=== PATIENT | female | born 1935 | race Caucasian/White ===

== ENCOUNTER → 2017-09-20 | Outpatient (CLI) | payer OTHER ==
[~2017-09-20] MED LIST: ALPR-411 PO; ASPEC81 PO; ATOR-24 PO; CALC600T9 PO; CLB200 PO; DOCU-94 PO; HYDR-5688 PO; LISI-461 PO; MAGN400T5 PO; METO100T44 PO; NRV5 PO; POTA-327 PO; PRLSR20 PO
[2017-09-20 17:49] LABS: BASO % 0.4 %; BASO ABS # 0.03 K/uL (0-0.2); EOS % 2.6 %; HEMATOCRIT 41.1 % (37-47); IG# 0.01 K/uL (0.00-0.02); LYMPH % 38.5 %; LYMPH ABS # 2.97 K/uL (1.2-3.4); MEAN CELL VOLUME 94.9 fL (80-100); MEAN CORPUSCULAR HEMOGLOBIN 32.3 pg (25-34); MEAN CORPUSCULAR HGB CONC 34.1 g/dl (32-36); MEAN PLATELET VOLUME 9.6 fL (7.4-10.4); MONO % 8.9 %; MONO ABS # 0.69 K/uL (0.11-0.59); NEUT % 49.5 %; NEUT ABS # 3.81 K/uL (1.4-6.5); PLATELET COUNT 283 K/uL (130-400); RED CELL DISTRIBUTION WIDTH CV 13.1 % (11.5-14.5); RED CELL DISTRIBUTION WIDTH SD 45.6 fL (36.4-46.3); WHITE BLOOD COUNT 7.71 K/uL (4.8-10.8)
[2017-09-20 18:14] LABS: ALBUMIN 4.1 gm/dl (3.4-5.0); ALT/SGPT 30 U/L (12-78); AST/SGOT 26 U/L (15-37); BLOOD UREA NITROGEN 14 mg/dl (7-18); CARBON DIOXIDE 29 mmol/L (21-32); CREATININE 0.96 mg/dl (0.60-1.20); GLUCOSE 100 mg/dl (70-99); POTASSIUM 3.9 mmol/L (3.5-5.1); SODIUM 137 mmol/L (136-145)
[2017-09-20 18:17] LABS: ALKALINE PHOSPHATASE 115 U/L (45-117); CHOLESTEROL 154 mg/dl (0-200); LDL CHOLESTEROL CALCULATED 72 mg/dl; TOTAL PROTEIN 8.5 gm/dl (6.4-8.2)
== END | disposition home or self-care (01) ==
LOC: C.LABMFLN 11:37
PROVIDERS: ATTEND Family Medicine
DX: I10 Essential (primary) hypertension (principal); E78.5 Hyperlipidemia, unspecified

== ENCOUNTER → 2017-10-18 | Outpatient (CLI) | payer OTHER | END | disposition home or self-care (01) | LOC: C.LABMFLN 07:45 | PROVIDERS: ATTEND Family Medicine | DX: R74.8 Abnormal levels of other serum enzymes (principal) ==

== ENCOUNTER 2023-02-11 14:48 | Observation (INO) ==
[2023-02-11 16:08] LABS: Basophils # (auto) 0.02 K/uL (0-0.2); Basophils % (auto) 0.3 %; Eosinophils # (auto) 0.06 K/uL (0-0.50); Eosinophils % (auto) 0.8 %; Hematocrit (blood only) 41.9 % (37.0-47.0); Hemoglobin 14.2 g/dl (12.0-16.0); Immature Granulocytes # (auto) 0.01 K/uL (0.01-0.20); Immature Granulocytes % (auto) 0.1 %; Lymphocytes # (auto) 2.41 K/uL (1.2-3.4); Lymphocytes % (auto) 33.4 %; Mean Corpuscular Hemoglobin 30.8 pg (25.0-34.0); Mean Corpuscular Hgb Conc 33.9 g/dL (32.0-36.0); Mean Corpuscular Volume 90.9 fL (80.0-100.0); Mean Platelet Volume 9.5 fL (9.4-12.4); Monocytes # (auto) 0.35 K/uL (0.11-0.59); Monocytes % (auto) 4.9 %; Neutrophils # (auto) 4.36 K/uL (1.40-6.50); Neutrophils % (auto) 60.5 %; Platelet Count 292 K/uL (130-400); RDW Standard Deviation 42.7 fL (36.4-46.3); Red Blood Count 4.61 M/uL (4.20-5.40); White Blood Count 7.21 K/ul (4.8-10.8)
[2023-02-11 16:18] LABS: Alanine Aminotransferase 18 U/L (7-52); Albumin Globulin Ratio 1.2 (0.9-2); Albumin Level 4.5 gm/dl (3.4-5.0); Alkaline Phosphatase 113 U/L (34-104); Anion Gap 6 (3-11); Aspartate Aminotransferase 22 U/L (13-39); BUN Creatinine Ratio 14.3 (10-20); Bilirubin,Total 1.4 mg/dl (0.2-1.0); Blood Urea Nitrogen 11 mg/dl (6-23); Carbon Dioxide 30 mmol/L (21-32); Chloride 97 mmol/L (98-107); Est GFR (African American) 80.5 ml/min; Est GFR (Non-African American) 69.4 ml/min; Globulin 3.8 gm/dl (2.5-4.0); Glucose 139 mg/dl (70-99(Fasting)); Potassium 3.8 mmol/L (3.5-5.1); Sodium 133 mmol/L (136-145); Total Protein 8.3 gm/dl (6.0-8.3)
--- NOTE | 2023-02-11 16:58 | CT Scan Report ---
CT head/brain wo con CLINICAL HISTORY: 87 years-old Female with vertigo. Acute vertigo TECHNIQUE: Multiple axial CT images of the head were obtained without contrast. A dose lowering tech nique was utilized adhering to the principles of ALARA. CT DOSE: 547.75 mGy.cm COMPARISON: None. FINDINGS: No acute intracranial hemorrhage, midline shift, intracranial mass, hydrocephalus, territorial ischem ia or abnormal extra-axial collection. No additional changes with chronic microvascular ischemic dise ase. Prior bilateral lens repair. The calvarium is intact. The paranasal sinuses, mastoid air cells, and middle ear cavities are clear . IMPRESSION: No acute intracranial abnormality. ACT 112: Negative or not required by law. The above report was generated using voice recognition software. It may contain grammatical, syntax o r spelling errors. Electronically signed by: Lefty Jacobsen M.D. 02/11/2023 4:56 PM
[2023-02-11] MEDS ORDERED: SODIUM CHLORIDE 0.9% 500 ML IV ONE (17:27)
[2023-02-11 18:03] LABS: Magnesium 2.1 mg/dl (1.7-2.4); Phosphorus 2.9 mg/dl (2.5-4.9)
[2023-02-11 18:11] LABS: Troponin I High Sensitivity 4.9 pg/ml (0-14)
[2023-02-11] MEDS ORDERED: dexAMETHasone**PF** 10 MG/ML VIAL IV ONE (18:15)
[2023-02-11] MEDS ORDERED: MECLIZINE HCL 25 MG TAB PO STA (18:15)
--- NOTE | 2023-02-11 18:26 | Emergency Department Note ---
Impression & Plan Ataxia, Occlusion and stenosis of right vertebral artery, Hypertension ED Provider Note NAME: KEVIN DIXON AGE: 87 SEX: F ARRIVES VIA: Walk-In INFORMANT: Patient ED PROVIDER(S): Trevor Miles MD CHIEF COMPLAINT: dizziness PLAN: Disposition: Admit MEDICAL DECISION MAKING: The patient is a pleasant 87-year-old woman with a past medical history of BPPV, GERD, hypertension, hyperlipidemia, CAD who presents to the emergency department via walk-in accompanied by her daughter for evaluation of dizziness/imbalance which is worse and different from her chronic dizziness and imbalance which typically occurs when she gets up in the morning or gets up quickly from a chair and needs to take her time sitting before she stands. She reports this time she cannot stand up at all as she feels pulled to the left. She denies any headache, nausea, vomiting, fevers, chills, cough, congestion, GI or symptoms otherwise. The patient reports she had been on aspirin up until approximately 6 weeks ago but discontinued this due to her report of having epistaxis at least once a week. Of note, the patient did arrive to emergency department during time of high volume, acuity and prolonged emergency department waiting times. Critical pathways initiated from triage. On my evaluation the patient is no acute distress, afebrile blood pressure 150s/70s and vital signs otherwise stable. She appears clinically dry. She has no focal neurologic deficits. EKG without overt acute ischemia. WBC, H/H and platelets within normal limits. Chemistry without metabolic acid osis. Electrolytes without significant abnormality. Total bilirubin 1.4, nonspecific. LFTs otherwise unremarkable. High-sensitivity troponin 4.[address] of the head performed from triage was negative for ICH or ischemia. Subsequently CTA of the head and neck ordered for further characterization of the patient's symptoms which could be consistent with posterior stroke. Short segment occlusion of the right vertebral artery at the level of C1. Note is made of dominant left vertebral basilar system which supplies the posterior circulation and does not demonstrate any significant stenosis, dissection, aneurysm or occlusion. I did review the patient's findings with her and her daughter at the bedside. She initially was not inclined to be admitted to the hospital for further testing as she reports she "would not want anything done". It was explained that there is no evidence to suggest an intervention will be required however MRI of the brain will further characterize the cause of her symptoms for which posterior CVA is highly considered and moreover the patient's functional status has changed per her report where she cannot stand without being "pulled to the side". The patient and her daughter subsequently were both in agreement and the patient agreed with plan for admission. Dr. Johnson, [facility] [place], will evaluate the patient for admission. MRI brain ordered and pending. Patient remains well-appearing and hemodynamically stable. Further management per admitting team. Triage Nursing notes reviewed and agree them. Prior/outside medical records reviewed Vital Signs: reviewed Differential diagnosis: Benign positional vertigo, dehydration, hypovolemia, anemia, tumor, infection, hypoglycemia, electrolyte abnormalities, cardiac sources, intracerebral event, toxicologic, neurologic, as well as other pathologies. ER treatment provided: See below. Diagnostics interpreted by me: ECG: Normal sinus rhythm, 72 bpm, no ectopy, nonspecific T wave abnormality, no overt ST elevation or depression, QTc 448, QRS 68. Cardiac Monitoring: An order for continuous cardiac monitoring was placed and demonstrated normal sinus rhythm, 72 bpm, no ectopy. Laboratory studies: See below Imaging studies: See below Consultation(s): Dr. Johnson, [facility] [place]. HPI: The patient is a pleasant 87-year-old woman with a past medical history of BPPV, GERD, hypertension, hyperlipidemia, CAD who presents to the emergency department via walk-in accompanied by her daughter for evaluation of dizziness/imbalance which is worse and different from her chronic dizziness and imbalance which typically occurs when she gets up in the morning or gets up quickly from a chair and needs to take her time sitting before she stands. She reports this time she cannot stand up at all as she feels pulled to the left. She denies any headache, nausea, vomiting, fevers, chills, cough, congestion, GI or symptoms otherwise. The patient reports she had been on aspirin up until approximately 6 weeks ago but discontinued this due to her report of having epistaxis at least once a week. ROS: See above HPI for pertinent positives & negatives. A total of 10 systems reviewed and were otherwise negative. VITALS:See Below PHYSICAL EXAMINATION: GENERAL: Awake, alert, fatigued-appearing, in no distress HENT: Normocephalic, atraumatic. Oropharynx with dry mucous membranes and otherwise unremarkable. EYES: Normal conjunctiva. Sclera non-icteric. EOMI. No nystamgus. PEARRL. NECK: Supple. No nuchal rigidity. FROM. No JVD. RESPIRATORY: Clear to auscultation. CARDIAC: Regular rate, normal rhythm. Extremities warm and well perfused. Pulses equal. ABDOMEN: Soft, non-distended. No tenderness to palpation. No rebound or guarding. No masses. RECTAL: Deferred. MUSCULOSKELETAL: Chest examination reveals no tenderness. The back is symmetrical on inspection without obvious abnormality. There is no CVA tenderness to palpation. No joint edema. LOWER EXTREMITIES: Calves are equal size bilaterally and non-tender. No edema. No discoloration. NEURO:No sensory or motor deficits noted. 5/5 strength and SILT x 4 extremities. Cerebellar function intact including [id number], alternating palms, [id number]. SKIN: No rash or jaundice noted. Trevor Miles MD Past Med/Surg History Medical History Adult celiac disease Anxiety BPPV (benign paroxysmal positional vertigo) CAD (coronary artery disease) Chronic lumbar pain GERD (gastroesophageal reflux disease) HTN (hypertension) Hyperlipidemia Surgical History History of back surgery History of carpal tunnel repair History of cataract surgery History of esophagogastroduodenoscopy (EGD) History of foot surgery "bilat bunion surgery" History of tonsillectomy and adenoidectomy Family History Mother Myocardial infarction Father Myocardial infarction Denies family history of Ovarian cancer Prostate cancer Breast cancer Colorectal cancer Social History Smoking Status: Never smoker Hx Alcohol Use: No Hx Substance Use: No Preferred Language: Qatari marital status: / Feels Safe at Home: Yes Allergies Allergies Allergy/AdvReac Type Severity Reaction Status Date / Time benazepril Allergy Unknown per cardio Verified 02/11/23 19:10 note codeine Allergy Unknown ABDOMINAL Verified 02/11/23 19:10 PAIN gluten Allergy Unknown NO GLUTEN, Verified 02/11/23 19:10 PT HAS CELIAC DISEASE morphine AdvReac Unknown SEVERE Verified 02/11/23 19:10 HALLUCINATION Home Meds Home Medications Medication Instructions Recorded Confirmed cyanocobalamin (vitamin B-12) 1,000 mcg PO QAM 03/05/19 02/11/23 1,000 mcg tablet acetaminophen 650 mg 650 mg PO Q12H PRN Pain 06/23/19 02/11/23 tablet,extended release (Tylenol Arthritis Pain) amlodipine 5 mg tablet (Norvasc) 5 mg PO DAILY 12/28/22 02/11/23 calcium carbonate 600 mg-vitamin 1 cap PO DAILY 12/28/22 02/11/23 D3 5 mcg (200 unit) capsule (Calcium 600 + D(3)) magnesium oxide 400 mg PO DAILY 12/28/22 02/11/23 potassium chloride 20 mEq 20 meq PO DAILY 12/28/22 02/11/23 tablet,extended release vitamin E acetate 134 mg (200 134 mg PO DAILY 02/11/23 02/11/23 unit) capsule Previous Rx's Medication Instructions Recorded omeprazole 20 mg capsule,delayed 20 mg PO QAM PRN stomach upset #90 06/22/21 release caps meclizine 25 mg tablet 25 mg PO TID PRN severe vertigo 01/21/22 #30 tabs losartan 100 mg tablet 100 mg PO QAM #90 tabs 06/07/22 atorvastatin 20 mg tablet 20 mg PO HS #90 tabs 01/17/23 metoprolol succinate 100 mg 150 mg PO QAM #135 tabs 01/20/23 tablet,extended release 24 hr alprazolam 0.5 mg tablet (Xanax) See Rx Instructions PO TID PRN 01/31/23 anxiety #90 tabs nitroglycerin 0.4 mg sublingual 0.4 mg sublingual Q5M PRN chest 01/31/23 tablet pain #25 tabs Results & Data (ED) Vital Signs Vital Signs - 24 hr 02/11/23 14:54 02/11/23 17:31 02/11/23 17:44 Temperature 36.2 C L Temperature Source Temporal Artery Scan Pulse Rate 81 73 Pulse Rate [Left Finger] 79 Pulse Rate from SpO2 Sensor Respiratory Rate 20 22 Blood Pressure 152/77 H Blood Pressure [Right Arm] 175/83 H Blood Pressure Mean 102 Blood Pressure Mean [Right Arm] 113 Pulse Oximetry 94 95 Oxygen Delivery Method Room Air Sepsis Recent Fever Within 48 Hours No Sepsis New/Unexplained Change in Mental Status N/A Sepsis Action Taken by Nursing No Action Required 02/11/23 17:42 02/11/23 18:00 Temperature Temperature Source Pulse Rate 80 69 Pulse Rate [Left Finger] Pulse Rate from SpO2 Sensor 82 69 Respiratory Rate 19 17 Blood Pressure Blood Pressure [Right Arm] Blood Pressure Mean Blood Pressure Mean [Right Arm] Pulse Oximetry 96 96 Oxygen Delivery Method Sepsis Recent Fever Within 48 Hours Sepsis New/Unexplained Change in Mental Status Sepsis Action Taken by Nursing Laboratory Data Attestation: I reviewed the patient's lab results. 02/11/23 15:15 02/11/23 15:15 Lab Results 02/11/23 02/11/23 02/11/23 Range/Units 15:15 15:15 15:15 WBC 7.21 (4.8-10.8) K/ul RBC 4.61 (4.20-5.40) M/uL Hgb 14.2 (12.0-16.0) g/dl Hct 41.9 (37.0-47.0) % MCV 90.9 (80.0-100.0) fL MCH 30.8 (25.0-34.0) pg MCHC 33.9 (32.0-36.0) g/dL RDW Std Deviation 42.7 (36.4-46.3) fL RDW Coeff of Maria M 13.0 (11.5-14.5) % Plt Count 292 (130-400) K/uL MPV 9.5 (9.4-12.4) fL Immature Gran % (Auto) 0.1 % Neut % (Auto) 60.5 % Lymph % (Auto) 33.4 % Gregory % (Auto) 4.9 % Eos % (Auto) 0.8 % Baso % (Auto) 0.3 % Neut # (Auto) 4.36 (1.40-6.50) K/uL Lymph # (Auto) 2.41 (1.2-3.4) K/uL Gregory # (Auto) 0.35 (0.11-0.59) K/uL Eos # (Auto) 0.06 (0-0.50) K/uL Baso # (Auto) 0.02 (0-0.2) K/uL Immature Gran # (Auto) 0.01 (0.01-0.20) K/uL Sodium 133 L (136-145) mmol/L Potassium 3.8 (3.5-5.1) mmol/L Chloride 97 L (98-107) mmol/L Carbon Dioxide 30 (21-32) mmol/L Anion Gap 6 (3-11) BUN 11 (6-23) mg/dl Creatinine 0.77 (0.6-1.2) mg/dl Est Cr Clr Drug Dosing Not Reportable Est GFR ( Amer) 80.5 ml/min Est GFR (Non-Af Amer) 69.4 ml/min BUN/Creatinine Ratio 14.3 (10-20) Glucose 139 H (70-99(Fasting)) mg/dl POC Glucose 137 H (70-99) mg/dl Calcium 10.0 (8.6-10.3) mg/dl Phosphorus 2.9 (2.5-4.9) mg/dl Magnesium 2.1 (1.7-2.4) mg/dl Total Bilirubin 1.4 H (0.2-1.0) mg/dl AST 22 (13-39) U/L ALT 18 (7-52) U/L Alkaline Phosphatase 113 H (34-104) U/L Troponin I High Sens 4.9 (0-14) pg/ml Total Protein 8.3 (6.0-8.3) gm/dl Albumin 4.5 (3.4-5.0) gm/dl Globulin 3.8 (2.5-4.0) gm/dl Albumin/Globulin Ratio 1.2 (0.9-2) TSH (0.300-4.500) uIu/ml 02/11/23 Range/Units 15:15 WBC (4.8-10.8) K/ul RBC (4.20-5.40) M/uL Hgb (12.0-16.0) g/dl Hct (37.0-47.0) % MCV (80.0-100.0) fL MCH (25.0-34.0) pg MCHC (32.0-36.0) g/dL RDW Std Deviation (36.4-46.3) fL RDW Coeff of Maria M (11.5-14.5) % Plt Count (130-400) K/uL MPV (9.4-12.4) fL Immature Gran % (Auto) % Neut % (Auto) % Lymph % (Auto) % Gregory % (Auto) % Eos % (Auto) % Baso % (Auto) % Neut # (Auto) (1.40-6.50) K/uL Lymph # (Auto) (1.2-3.4) K/uL Gregory # (Auto) (0.11-0.59) K/uL Eos # (Auto) (0-0.50) K/uL Baso # (Auto) (0-0.2) K/uL Immature Gran # (Auto) (0.01-0.20) K/uL Sodium (136-145) mmol/L Potassium (3.5-5.1) mmol/L Chloride (98-107) mmol/L Carbon Dioxide (21-32) mmol/L Anion Gap (3-11) BUN (6-23) mg/dl Creatinine (0.6-1.2) mg/dl Est Cr Clr Drug Dosing Est GFR ( Amer) ml/min Est GFR (Non-Af Amer) ml/min BUN/Creatinine Ratio (10-20) Glucose (70-99(Fasting)) mg/dl POC Glucose (70-99) mg/dl Calcium (8.6-10.3) mg/dl Phosphorus (2.5-4.9) mg/dl Magnesium (1.7-2.4) mg/dl Total Bilirubin (0.2-1.0) mg/dl AST (13-39) U/L ALT (7-52) U/L Alkaline Phosphatase (34-104) U/L Troponin I High Sens (0-14) pg/ml Total Protein (6.0-8.3) gm/dl Albumin (3.4-5.0) gm/dl Globulin (2.5-4.0) gm/dl Albumin/Globulin Ratio (0.9-2) TSH 1.086 (0.300-4.500) uIu/ml Administered Medications Sodium Chloride (Nss) 500 mls @ 80 mls/hr IV .Q6H15M [facility] Stop: 03/13/23 20:14 Last Admin: 02/11/23 22:08 Dose: 80 mls/hr Documented By: BS Discontinued Medications Dexamethasone Sodium Phosphate (DexamethasonePf 10 Mg/Ml Vial) 10 mg IV NOW ONE Stop: 02/11/23 18:16 Last Admin: 02/11/23 19:11 Dose: 10 mg Documented By: GILBERTO Gadobutrol (Gadobutrol 65ml Vial) 6.5 ml IV ONCE ONE Stop: 02/11/23 21:32 Last Admin: 02/11/23 21:31 Dose: 6.5 ml Documented By: NELLY Sodium Chloride (Nss) 500 mls @ 999 mls/hr IV .Q31M ONE Stop: 02/11/23 17:57 Last Infusion: 02/11/23 18:39 Dose: 0 mls/hr Documented By: Admin: 02/11/23 17:56 Dose: 999 mls/hr Documented By: IZABEL Ioversol (Ioversol 350 Mg 125ml Prefilled Syringe) 118 ml IV ONCE ONE Stop: 02/11/23 18:48 Last Admin: 02/11/23 18:48 Dose: 118 ml Documented By: ELICIA Lorazepam (Lorazepam 0.5 Mg Tab) 0.25 mg PO NOW STA Stop: 02/11/23 19:59 Last Admin: 02/11/23 20:45 Dose: 0.25 mg Documented By: Meclizine HCl (Meclizine Hcl 25 Mg Tab) 12.5 mg PO NOW STA Stop: 02/11/23 18:16 Last Admin: 02/11/23 19:11 Dose: 12.5 mg Documented By: GILBERTO Imaging Data Radiologist's Impression: Head CT 02/11/23 16:24 CT head/brain wo con CLINICAL HISTORY: 87 years-old Female with vertigo. Acute vertigo TECHNIQUE: Multiple axial CT images of the head were obtained without contrast. A dose lowering technique was utilized adhering to the principles of ALARA. CT DOSE: 547.75 mGy.cm COMPARISON: None. FINDINGS: No acute intracranial hemorrhage, midline shift, intracranial mass, hydrocephalus, territorial ischemia or abnormal extra-axial collection. No additional changes with chronic microvascular ischemic disease. Prior bilateral lens repair. The calvarium is intact. The paranasal sinuses, mastoid air cells, and middle ear cavities are clear. IMPRESSION: No acute intracranial abnormality. ACT 112: Negative or not required by law. The above report was generated using voice recognition software. It may contain grammatical, syntax or spelling errors. Electronically signed by: Lefty Jacobsen M.D. 02/11/2023 4:56 PM Head CTA 02/11/23 18:15 Exam(s): CTA HEAD With Contrast IV Amt: 118ML OPTIRAY 350 EXAM: CT Angiography Head With Intravenous Contrast CLINICAL HISTORY: Reason for exam: vertigo/ataxia. TECHNIQUE: Axial computed tomographic angiography images of the head with intravenous contrast. CTDI is none 26.99 mGy and DLP is 459.08 mGy-cm. Automated exposure control was utilized for the study. A dose lowering technique was utilized adhering to the principles of ALARA. MIP reconstructed images were created and reviewed. CONTRAST: Patient received 118ML OPTIRAY 350 of IV contrast COMPARISON: No relevant prior studies available. FINDINGS: Right internal carotid artery: No acute findings. Intracranial segment is patent with no significant stenosis. No aneurysm. Right anterior cerebral artery: Unremarkable. No occlusion or significant stenosis. No aneurysm. Right middle cerebral artery: Unremarkable. No occlusion or significant stenosis. No aneurysm. Right posterior cerebral artery: Unremarkable. No occlusion or significant stenosis. No aneurysm. Right vertebral artery: Right vertebral artery is severely atretic and demonstrates short segment occlusion at the C1 level. There are collaterals filling the [employer] which reconstitutes the distal aspect of the right vertebral artery as it joins the left vertebral artery forms the basilar artery. Left internal carotid artery: No acute findings. Intracranial segment is patent with no significant stenosis. No aneurysm. Left anterior cerebral artery: Unremarkable. No occlusion or significant stenosis. No aneurysm. Left middle cerebral artery: Unremarkable. No occlusion or significant stenosis. No aneurysm. Left posterior cerebral artery: Unremarkable. No occlusion or significant stenosis. No aneurysm. Left vertebral artery: See above. Basilar artery: See above. 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 The patient has a left dominant vertebral basilar system and this supplies the posterior circulation which does not demonstrate any significant stenosis, dissection, aneurysm, or occlusion. The remainder of the intracranial circulation is unremarkable. Electronically signed by: Danilo Maurice MD 02/11/23 19:10 PM Neck CTA 02/11/23 18:15 Exam(s): CTA NECK With Contrast IV Amt: 118ML OPTIRAY 350 EXAM: CT Angiography Neck With Intravenous Contrast CLINICAL HISTORY: Reason for exam: vertigo/ataxia. TECHNIQUE: Routine carotid CT angiography protocol was performed with intravenous contrast. NASCET criteria using the distal ICAs for comparison were used for evaluation of stenoses. CTDI is 11.99 mGy and DLP is 459.08 mGy-cm. Automated exposure control was utilized for the study. A dose lowering technique was utilized adhering to the principles of ALARA. MIP reconstructed images were created and reviewed. CONTRAST: Patient received 118ML OPTIRAY 350 of IV contrast COMPARISON: None. FINDINGS: VASCULATURE: Right common carotid artery: Unremarkable. No occlusion or significant stenosis. No dissection. Right internal carotid artery: Unremarkable. Extracranial segment is patent with no occlusion or significant stenosis. No dissection. Right external carotid artery: Unremarkable. No occlusion. Right vertebral artery: The right vertebral artery is atretic along its entire course and occludes at the C1 level. There is reconstitution of the distal right vertebral artery via collaterals as a joins the basilar artery. Patient has a left dominant vertebral basilar system which supplies the entire posterior circulation. Left common carotid artery: Unremarkable. No occlusion or significant stenosis. No dissection. Left internal carotid artery: Unremarkable. Extracranial segment is patent with no occlusion or significant stenosis. No dissection. Left external carotid artery: Unremarkable. No occlusion. Left vertebral artery: Unremarkable. No occlusion or significant stenosis. No dissection. NECK: Bones/joints: Unremarkable Soft tissues: Unremarkable. Lung apices: Clear. Other findings: CAROTID STENOSIS REFERENCE USING NASCET CRITERIA: % ICA stenosis = (1 - narrowest ICA diameter/diameter of distal cervical ICA) x 100. Mild - <50% stenosis. Moderate - 50-69% stenosis. Severe - 70-94% stenosis. Near occlusion - 95-99% stenosis. Occluded - 100% stenosis. 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 COMPARISON STUDY: CT of the brain dated 02/11/2023. TECHNIQUE: MRI of the brain was performed utilizing various T1 and T2-weighted sequences in the axial, sagittal, and coronal planes. Contrast-enhanced sequences were acquired following the administration of 6.5 cc of Gadavist. FINDINGS: Brain parenchyma: There is age-related involutional change noting advanced subcortical and periventricular microangiopathic disease. There is no hemorrhage or mass effect. There is no restricted diffusion to suggest acute ischemia. No enhancing mass lesion is identified on the postcontrast images. A chronic lacunar infarct is noted in the scott. Alvarado-white matter differentiation is preserved. No extra-axial fluid collection is seen. The cerebellar tonsils are normal in configuration. Ventricles, sulci, and cisterns: Prominent secondary to additional change. Pituitary and sella: Unremarkable. Intracranial vasculature: Normal flow voids are maintained at the skull base. Orbits: The bony orbits are grossly intact. Orbital contents are normal in appearance noting bilateral ocular lens implants. Sinuses and mastoids: Clear. Calvarium: Unremarkable. Cervical cord: Partially visualized cervical spinal cord is normal in morphology and signal intensity. IMPRESSION: No acute intracranial abnormality. ACT 112: Negative or not required by law. Electronically signed by: Brandon Tafoya M.D. 02/11/2023 9:52 PM Chest X-Ray 02/11/23 19:57 SINGLE VIEW CHEST CLINICAL HISTORY: Dizziness. FINDINGS: 2 AP, portable, upright chest radiographs are compared to study dated 06/23/2019. The heart is mildly enlarged noting atherosclerotic calcification of the thoracic aorta. The pulmonary vasculature is noncongested. Chronic interstitial thickening similar to previous. There is chronic elevation of the right hemidiaphragm. No airspace consolidation or large pleural effusion is identified. No pneumothorax is seen. The skeletal structures are osteopenic. The bony thorax is grossly intact. Fusion hardware is seen at the thoracolumbar junction. Cholecystectomy clips are seen in the right upper quadrant. IMPRESSION: No active disease in the chest. ACT 112: Negative or not required by law. Electronically signed by: Brandon Tafoya M.D. 02/11/2023 8:24 PM Discharge Plan Visit Data Chief Complaint: Vertigo Stated Complaint: DIZZY ED Provider: Trevor Miles Discharge Problem: Ataxia, Occlusion and stenosis of right vertebral artery, Hypertension Forms Stand Alone Forms: [employer] Prescriptions Prescriptions: No Action losartan 100 mg tablet 100 mg PO QAM Qty: 90 3RF atorvastatin 20 mg tablet 20 mg PO HS Qty: 90 3RF metoprolol succinate 100 mg tablet extended release 24 hr 150 mg PO QAM Qty: 135 1RF nitroglycerin 0.4 mg tablet, sublingual 0.4 mg SL Q5M PRN (Reason: chest pain) Qty: 25 0RF alprazolam [Xanax] 0.5 mg tablet See Rx Instructions PO TID PRN (Reason: anxiety) Qty: 90 0RF Rx Instructions: 1/2-1 tab tid orally three times a day PRN; omeprazole 20 mg capsule,delayed release(DR/EC) 20 mg PO QAM PRN (Reason: stomach upset) Qty: 90 3RF meclizine 25 mg tablet 25 mg PO TID PRN (Reason: severe vertigo) Qty: 30 1RF cyanocobalamin (vitamin B-12) 1,000 mcg tablet 1,000 mcg PO QAM magnesium oxide 400 mg magnesium capsule 400 mg PO DAILY potassium chloride 20 mEq tablet extended release 20 meq PO DAILY amlodipine [Norvasc] 5 mg tablet 5 mg PO DAILY acetaminophen [Tylenol Arthritis Pain] 650 mg Tablet Extended Release 650 mg PO Q12H PRN (Reason: Pain) Calcium 600 + D(3) 600 mg-5 mcg (200 unit) capsule 1 cap PO DAILY vitamin E acetate 134 mg (200 unit) Capsule 134 mg PO DAILY Referrals Referrals: Ted Pinzon DO [Primary Care Provider] -
[2023-02-11] MEDS ORDERED: IOVERSOL 350 MG 125mL Prefilled Syringe IV ONE (18:47)
--- NOTE | 2023-02-11 19:11 | CT Scan Report ---
Exam(s): CTA HEAD With Contrast IV Amt: 118ML OPTIRAY 350 EXAM: CT Angiography Head With Intravenous Contrast CLINICAL HISTORY: Reason for exam: vertigo/ataxia. TECHNIQUE: Axial computed tomographic angiography images of the head with intravenous contrast. CTDI is none 26.99 mGy and DLP is 459.08 mGy-cm. Automated exposure control was utilized for the study. A dose lowering technique was utilized adhering to the principles of ALARA. MIP reconstructed images were created and reviewed. CONTRAST: Patient received 118ML OPTIRAY 350 of IV contrast COMPARISON: No relevant prior studies available. FINDINGS: Right internal carotid artery: No acute findings. Intracranial segment is patent with no significant stenosis. No aneurysm. Right anterior cerebral artery: Unremarkable. No occlusion or significant stenosis. No aneurysm. Right middle cerebral artery: Unremarkable. No occlusion or significant stenosis. No aneurysm. Right posterior cerebral artery: Unremarkable. No occlusion or significant stenosis. No aneurysm. Right vertebral artery: Right vertebral artery is severely atretic and demonstrates short segment occlusion at the C1 level. There are collaterals filling the R[employer] which reconstitutes the distal aspect of the right vertebral artery as it joins the left vertebral artery forms the basilar artery. Left internal carotid artery: No acute findings. Intracranial segment is patent with no significant stenosis. No aneurysm. Left anterior cerebral artery: Unremarkable. No occlusion or significant stenosis. No aneurysm. Left middle cerebral artery: Unremarkable. No occlusion or significant stenosis. No aneurysm. Left posterior cerebral artery: Unremarkable. No occlusion or significant stenosis. No aneurysm. Left vertebral artery: See above. Basilar artery: See above. 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 The patient has a left dominant vertebral basilar system and this supplies the posterior circulation which does not demonstrate any significant stenosis, dissection, aneurysm, or occlusion. The remainder of the intracranial circulation is unremarkable. Electronically signed by: Danilo Maurice MD 02/11/23 19:10 PM
--- NOTE | 2023-02-11 19:16 | CT Scan Report ---
Exam(s): CTA NECK With Contrast IV Amt: 118ML OPTIRAY 350 EXAM: CT Angiography Neck With Intravenous Contrast CLINICAL HISTORY: Reason for exam: vertigo/ataxia. TECHNIQUE: Routine carotid CT angiography protocol was performed with intravenous contrast. NASCET criteria using the distal ICAs for comparison were used for evaluation of stenoses. CTDI is 11.99 mGy and DLP is 459.08 mGy-cm. Automated exposure control was utilized for the study. A dose lowering technique was utilized adhering to the principles of ALARA. MIP reconstructed images were created and reviewed. CONTRAST: Patient received 118ML OPTIRAY 350 of IV contrast COMPARISON: None. FINDINGS: VASCULATURE: Right common carotid artery: Unremarkable. No occlusion or significant stenosis. No dissection. Right internal carotid artery: Unremarkable. Extracranial segment is patent with no occlusion or significant stenosis. No dissection. Right external carotid artery: Unremarkable. No occlusion. Right vertebral artery: The right vertebral artery is atretic along its entire course and occludes at the C1 level. There is reconstitution of the distal right vertebral artery via collaterals as a joins the basilar artery. Patient has a left dominant vertebral basilar system which supplies the entire posterior circulation. Left common carotid artery: Unremarkable. No occlusion or significant stenosis. No dissection. Left internal carotid artery: Unremarkable. Extracranial segment is patent with no occlusion or significant stenosis. No dissection. Left external carotid artery: Unremarkable. No occlusion. Left vertebral artery: Unremarkable. No occlusion or significant stenosis. No dissection. NECK: Bones/joints: Unremarkable Soft tissues: Unremarkable. Lung apices: Clear. Other findings: CAROTID STENOSIS REFERENCE USING NASCET CRITERIA: % ICA stenosis = (1 - narrowest ICA diameter/diameter of distal cervical ICA) x 100. Mild - <50% stenosis. Moderate - 50-69% stenosis. Severe - 70-94% stenosis. Near occlusion - 95-99% stenosis. Occluded - 100% stenosis. IMPRESSION: Short segment occlusion of an atretic right vertebral artery with reconstitution of the vessel distally within the posterior fossa via collaterals Electronically signed by: Danilo Maurice MD 02/11/23 19:15 PM
[2023-02-11] MEDS ORDERED: LORazepam 0.5 MG TAB PO STA (19:58)
--- NOTE | 2023-02-11 20:27 | XRay Report ---
SINGLE VIEW CHEST CLINICAL HISTORY: Dizziness. FINDINGS: 2 AP, portable, upright chest radiographs are compared to study dated 06/23/2019. The heart is mildly enlarged noting atherosclerotic calcification of the thoracic aorta. The pulmonary vasculat ure is noncongested. Chronic interstitial thickening similar to previous. There is chronic elevation of the right hemidiaphragm. No airspace consolidation or large pleural effusion is identified. No pne umothorax is seen. The skeletal structures are osteopenic. The bony thorax is grossly intact. Fusion hardware is seen at the thoracolumbar junction. Cholecystectomy clips are seen in the right upper gomez drant. IMPRESSION: No active disease in the chest. ACT 112: Negative or not required by law. Electronically signed by: Brandon Tafoya M.D. 02/11/2023 8:24 PM
--- NOTE | 2023-02-11 20:29 | History & Physical Report ---
Date of Service February 11, 2023 Assessment & Plan (1) Ataxia: Plan: Ataxia, suspect CVA? 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 The patient has a left dominant vertebral basilar system and this supplies the posterior circulation which does not demonstrate any significant stenosis, dissection, aneurysm, or occlusion. The remainder of the intracranial circulation is unremarkable. - CT-H: No acute intracranial abnormality. Patient would not want any revascularization procedures even if they were available Plavix started, atorvastatin increased to 40 mg No leukocytosis Hemoglobin 14.2 Sodium 133, potassium 3.8, creatinine 0.77 on admission BSG 140 T. bili chronically mildly elevated, 1.4 which is near baseline. No transaminitis High sensitive troponin is normal TSH is normal EKG: Normal sinus rhythm, QTc 448, no territorial ST or T wave changes No prior echo on file, will repeat with bubble study GERD PPI converted to Protonix while inpatient Hyperlipidemia Continue atorvastatin, dose increased to 40 mg. Lipid panel pending Hypertension Permissive hypertension for 24 hours, resume antihypertensives 02/12 morning including losartan/amlodipine/metoprolol If signs of beta-marguerite withdrawal, resume metoprolol evening of 02/11 Low-salt BPPV No nystagmus on exam - Sx different from prior BPPV sx - PT/OT pending CAD Aspirin resumed, metoprolol as noted, losartan as noted. EKG without acute ischemic findings, high sensitive troponin normal Adult celiac disease Gluten-free diet DVT prophylaxis: Lovenox Diet: Heart healthy/low-salt CODE STATUS: DNR Disposition: PCU for CVA eval (2) Occlusion and stenosis of right vertebral artery: (3) Hypertension: (4) BPPV (benign paroxysmal positional vertigo): (5) GERD (gastroesophageal reflux disease): (6) HTN (hypertension): (7) CAD (coronary artery disease): History of Present Illness Primary Care Provider: DO Noris Landa is an 87-year-old female with a past medical history of hyperlipidemia, hypertension, CAD, transaminitis, BPPV, hypertension, right vertebral stenosis who woke up 02/11 with ataxia much different from her prior orthostatic/vertigo symptoms. At 6:20am Noris called her daughter because she could not stand up. She slept on the couch and went to get up and was listing to the side. This felt different from her prior vertigo or orthostasis. Reports 'I just felt different, more lightheaded and couldn't keep balance.' DId no tpass out. NO preysncope. No luis st pain or chest pressure. No fevers, chills, or sweats No weakness, no vision change, no sensory change No difficulty with speech. No aphasia or dysarthria. No nausea/vomiting. Has had some loose BMs lately, hx of diverticulosis. No ab pain and not currently on any abx. Took medicines this morning but not tonight Used to be on aspirin several years ago, stopped due to weekly nosebleeds on Fridays x5 weeks. Not dizzy at bedside. Does not want any surgical interventions or invasive measures even if these were available. "My and son have passed, I miss them and I'm ready when it's my time " Medical History: Reviewed Medications: Reviewed Surgical History: Reviewed Family history: Reviewed Allergies: Reviewed Social History: Reviewed. No tobacco, rare social etoh 'once in a blue colin.' Code Status: DNR/DNI Allergies Allergy/AdvReac Type Severity Reaction Status Date / Time benazepril Allergy Unknown per cardio Verified 02/11/23 19:10 note codeine Allergy Unknown ABDOMINAL Verified 02/11/23 19:10 PAIN gluten Allergy Unknown NO GLUTEN, Verified 02/11/23 19:10 PT HAS CELIAC DISEASE morphine AdvReac Unknown SEVERE Verified 02/11/23 19:10 HALLUCINATION Home Medications Medication Instructions Recorded Confirmed Type cyanocobalamin (vitamin B-12) 1,000 mcg PO QAM 03/05/19 02/11/23 History 1,000 mcg tablet acetaminophen 650 mg 650 mg PO Q12H PRN Pain 06/23/19 02/11/23 History tablet,extended release (Tylenol Arthritis Pain) omeprazole 20 mg capsule,delayed 20 mg PO QAM PRN stomach upset #90 06/22/21 02/11/23 Rx release caps meclizine 25 mg tablet 25 mg PO TID PRN severe vertigo 01/21/22 02/11/23 Rx #30 tabs losartan 100 mg tablet 100 mg PO QAM #90 tabs 06/07/22 02/11/23 Rx amlodipine 5 mg tablet (Norvasc) 5 mg PO DAILY 12/28/22 02/11/23 History calcium carbonate 600 mg-vitamin 1 cap PO DAILY 12/28/22 02/11/23 History D3 5 mcg (200 unit) capsule (Calcium 600 + D(3)) magnesium oxide 400 mg PO DAILY 12/28/22 02/11/23 History potassium chloride 20 mEq 20 meq PO DAILY 12/28/22 02/11/23 History tablet,extended release atorvastatin 20 mg tablet 20 mg PO HS #90 tabs 01/17/23 02/11/23 Rx metoprolol succinate 100 mg 150 mg PO QAM #135 tabs 01/20/23 02/11/23 Rx tablet,extended release 24 hr alprazolam 0.5 mg tablet (Xanax) See Rx Instructions PO TID PRN 01/31/23 02/11/23 Rx anxiety #90 tabs nitroglycerin 0.4 mg sublingual 0.4 mg sublingual Q5M PRN chest 01/31/23 02/11/23 Rx tablet pain #25 tabs vitamin E acetate 134 mg (200 134 mg PO DAILY 02/11/23 02/11/23 History unit) capsule Past Med/Surg History Medical History Adult celiac disease Anxiety BPPV (benign paroxysmal positional vertigo) CAD (coronary artery disease) Chronic lumbar pain GERD (gastroesophageal reflux disease) HTN (hypertension) Hyperlipidemia Surgical History History of back surgery History of carpal tunnel repair History of cataract surgery History of esophagogastroduodenoscopy (EGD) History of foot surgery "bilat bunion surgery" History of tonsillectomy and adenoidectomy Family History Mother Myocardial infarction Father Myocardial infarction Denies family history of Ovarian cancer Prostate cancer Breast cancer Colorectal cancer Social History Smoking Status: Never smoker Hx Alcohol Use: No Hx Substance Use: No Preferred Language: Occitan marital status: / Feels Safe at Home: Yes Review of Systems Review of Systems: All systems reviewed & are unremarkable except as noted in HPI & below Physical Exam Physical Exam: General: A&Ox3. NAD. Cooperative. HEENT: Atraumatic, normocephalic. Vision and hearing grossly intact. Pupils equal and reactive to light. No facial asymmetry, sensation intact in V1/V2/V3 bilaterally. Cheek puff intact, tongue protrudes Pulm: CTAB A&P. -wheezes, -rales, -rhonchi. Symmetrical chest rise. No increased work of breathing. No respiratory distress. Cardiac: RRR, soft sm. Radial pulses intact and symmetrical. Abdominal: Nontender, nondistended, soft. BS present. Ext: Suture Winder Hand strength, elbow flexion/extension, shoulder flexion, ankle dorsiflexion/plantarflexion 5/5 bilaterally without asymmetry. Sensation intact to soft touch in hands and feet bilaterally. [id number] and finger-nose is intact bilaterally without dysmetria Results & Data Results & Data Vital Signs (Past 12 Hours) Vital Signs Temp Pulse Pulse Resp BP BP Pulse Ox 02/11/23 17:44 73 02/11/23 17:31 79 22 175/83 H 95 02/11/23 14:54 36.2 C L 81 20 152/77 H 94 O2 Del Method 02/11/23 17:44 02/11/23 17:31 02/11/23 14:54 Room Air PG Care Time/CCT Total # of Minutes Spent Total Time Spent with Patient: Total time spent is greater than 50% in coordination of care (as documented) at patient's floor/unit and/or counseling patient: Coding Level of Care Code 32399 INT INP/OBS CARE 3/75MIN Diagnoses Ataxia R27.0 Occlusion and stenosis of right vertebral artery I65.01 Hypertension I10 BPPV (benign paroxysmal positional vertigo) H81.10 GERD (gastroesophageal reflux disease) K21.9 CAD (coronary artery disease) I25.10
[2023-02-11] MEDS ORDERED: GADOBUTROL 65ML VIAL IV ONE (21:31)
--- NOTE | 2023-02-11 21:54 | Magnetic Resonance Report ---
MRI OF THE BRAIN COMBO CLINICAL HISTORY: Ataxia. COMPARISON STUDY: CT of the brain dated 02/11/2023. TECHNIQUE: MRI of the brain was performed utilizing various T1 and T2-weighted sequences in the axial , sagittal, and coronal planes. Contrast-enhanced sequences were acquired following the administratio n of 6.5 cc of Gadavist. FINDINGS: Brain parenchyma: There is age-related involutional change noting advanced subcortical and periventri cular microangiopathic disease. There is no hemorrhage or mass effect. There is no restricted diffusi on to suggest acute ischemia. No enhancing mass lesion is identified on the postcontrast images. A ch ronic lacunar infarct is noted in the scott. Alvarado-white matter differentiation is preserved. No extra- axial fluid collection is seen. The cerebellar tonsils are normal in configuration. Ventricles, sulci, and cisterns: Prominent secondary to additional change. Pituitary and sella: Unremarkable. Intracranial vasculature: Normal flow voids are maintained at the skull base. Orbits: The bony orbits are grossly intact. Orbital contents are normal in appearance noting bilatera l ocular lens implants. Sinuses and mastoids: Clear. Calvarium: Unremarkable. Cervical cord: Partially visualized cervical spinal cord is normal in morphology and signal intensity . IMPRESSION: No acute intracranial abnormality. ACT 112: Negative or not required by law. Electronically signed by: Brandon Tafoya M.D. 02/11/2023 9:52 PM
[2023-02-11] MEDS: SODIUM CHLORIDE 0.9% 500 ML IV SCH (22:08)
[2023-02-12] MEDS ORDERED: MECLIZINE HCL 25 MG TAB PO PRN (02:35)
[2023-02-12] MEDS ORDERED: ALPRAZolam 0.5 MG TABLET PO PRN (02:35)
[2023-02-12] MEDS ORDERED: ATORVASTATIN 40 MG TAB PO SCH (02:35)
[2023-02-12] MEDS ORDERED: amLODIPine BESYLATE 5 MG TAB PO ONE (02:35)
[2023-02-12] MEDS ORDERED: NITROGLYCERIN SL 0.4 MG/TAB TAB SL PRN (02:35)
[2023-02-12] MEDS ORDERED: PHARMACIST DISCHARGE MED REC CONSULT PRN (02:35)
[2023-02-12] MEDS: SODIUM CHLORIDE 0.9% 500 ML IV SCH (02:46)
[2023-02-12] MEDS ORDERED: ACETAMINOPHEN 325 MG TAB PO PRN (02:48)
[2023-02-12] MEDS ORDERED: PANTOprazole 40 MG TAB PO PRN (02:49)
[2023-02-12 06:47] LABS: Basophils # (auto) 0.01 K/uL (0-0.2); Basophils % (auto) 0.1 %; Hemoglobin 13.8 g/dl (12.0-16.0); Immature Granulocytes # (auto) 0.01 K/uL (0.01-0.20); Immature Granulocytes % (auto) 0.1 %; Lymphocytes # (auto) 1.22 K/uL (1.2-3.4); Mean Corpuscular Hemoglobin 30.8 pg (25.0-34.0); Mean Corpuscular Hgb Conc 34.5 g/dL (32.0-36.0); Mean Corpuscular Volume 89.3 fL (80.0-100.0); Mean Platelet Volume 9.3 fL (9.4-12.4); Monocytes # (auto) 0.04 K/uL (0.11-0.59); Monocytes % (auto) 0.6 %; Neutrophils # (auto) 5.49 K/uL (1.40-6.50); Neutrophils % (auto) 81.2 %; Platelet Count 280 K/uL (130-400); RDW Standard Deviation 42.5 fL (36.4-46.3); Red Blood Count 4.48 M/uL (4.20-5.40); White Blood Count 6.77 K/ul (4.8-10.8)
[2023-02-12 07:10] LABS: BUN Creatinine Ratio 16.9 (10-20); Calcium 9.8 mg/dl (8.6-10.3); Chol HDL Ratio 2.9 (0-5); Creatinine Clr Calc Pharmacy 42.6 ml/min; Est GFR (African American) 80.5 ml/min; Est GFR (Non-African American) 69.4 ml/min; Magnesium 2.1 mg/dl (1.7-2.4); Phosphorus 3.9 mg/dl (2.5-4.9); Potassium 4.1 mmol/L (3.5-5.1)
[2023-02-12] MEDS ORDERED: METOPROLOL SUCC 50MG EXT REL TAB PO SCH (09:00)
[2023-02-12] MEDS ORDERED: ENOXAPARIN INJ 30 MG/0.3 ML SYR SQ SCH (09:00)
[2023-02-12] MEDS ORDERED: POTASSIUM CHLORIDE CRTAB 20 MEQ TABCR PO SCH (09:00)
[2023-02-12] MEDS ORDERED: amLODIPine BESYLATE 5 MG TAB PO SCH (09:00)
[2023-02-12] MEDS ORDERED: CALCIUM 600MG + VIT D 400 IU TAB PO SCH (09:00)
[2023-02-12] MEDS ORDERED: CLOPIDOGREL BISULFATE 75 MG TAB PO SCH (09:00)
[2023-02-12] MEDS ORDERED: MAGNESIUM OXIDE 400 MG TAB PO SCH (09:00)
[2023-02-12] MEDS ORDERED: LOSARTAN POTASSIUM 50 MG TAB PO SCH (09:00)
[2023-02-12] MEDS ORDERED: CYANOCOBALAMIN (B-12) 500 MCG TABLET PO SCH (09:00)
[2023-02-12] MEDS ORDERED: VITAMIN E ACETATE PO SCH (09:00)
[2023-02-12 09:02] LABS: Estimated Average Glucose 140 mg/dl; Hemoglobin A1C 6.5 % (4.5-5.6)
--- NOTE | 2023-02-12 10:27 | Electrocardiogram Report ---
Test Reason : Blood Pressure : / mmHG Vent. Rate : 072 BPM Atrial Rate : 072 BPM P-R Int : 184 ms QRS Dur : 068 ms QT Int : 410 ms P-R-T Axes : 062 039 043 degrees QTc Int : 448 ms Normal sinus rhythm very mild Nonspecific T wave abnormality Abnormal ECG When compared with ECG of 23-JUN-2019 10:24, T wave changes have improved Confirmed by Chris Novak ([id number]) on 02/12/2023 10:27:23 AM Referred By: REFERRED SELF Confirmed By:Chris Novak
[2023-02-12] MEDS ORDERED: STROKE PATIENT DISCHARGE STA (17:05)
--- NOTE | 2023-02-12 17:36 | Discharge Summary ---
Date of Service February 12, 2023 Admission HPI Per Admitting Provider Noris is an 87-year-old female with a past medical history of hyperlipidemia, hypertension, CAD, transaminitis, BPPV, hypertension, right vertebral stenosis who woke up 02/11 with ataxia much different from her prior orthostatic/vertigo symptoms. At 6:20am Noris called her daughter because she could not stand up. She slept on the couch and went to get up and was listing to the side. This felt different from her prior vertigo or orthostasis. Reports 'I just felt different, more lightheaded and couldn't keep balance.' DId no tpass out. NO preysncope. No chest pain or chest pressure. No fevers, chills, or sweats No weakness, no vision change, no sensory change No difficulty with speech. No aphasia or dysarthria. No nausea/vomiting. Has had some loose BMs lately, hx of diverticulosis. No ab pain and not currently on any abx. Took medicines this morning but not tonight Used to be on aspirin several years ago, stopped due to weekly nosebleeds on Fridays x5 weeks. Not dizzy at bedside. Does not want any surgical interventions or invasive measures even if these were available. "My and son have passed, I miss them and I'm ready when it's my time " Medical History: Reviewed Medications: Reviewed Surgical History: Reviewed Family history: Reviewed Allergies: Reviewed Social History: Reviewed. 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 Discharge Data Allergies Allergy/AdvReac Type Severity Reaction Status Date / Time benazepril Allergy Unknown per cardio Verified 02/11/23 19:10 note codeine Allergy Unknown ABDOMINAL Verified 02/11/23 19:10 PAIN gluten Allergy Unknown NO GLUTEN, Verified 02/11/23 19:10 PT HAS CELIAC DISEASE morphine AdvReac Unknown SEVERE Verified 02/11/23 19:10 HALLUCINATION Consultations 02/11/23 19:37 ED Decision to Admit Stat Ordered Studies 02/11/23 16:24 CT Brain [CT head/brain wo con] Stat 02/11/23 18:15 CT angio head w con Stat CT angio neck with con Stat 02/11/23 19:57 MRI Brain [MR brain wo/w con] Stat Hospital Course (1) Occlusion and stenosis of right vertebral artery: (2) Hypertension: (3) BPPV (benign paroxysmal positional vertigo): (4) GERD (gastroesophageal reflux disease): (5) CAD (coronary artery disease): Total Time Total Time Spent Total Time Spent (In Minutes): 45 Discharge Plan Discharge Items Patient Disposition: Home - Self-Care Reason For Visit: DIZZINESS, ?POSTERIOR CVA Discharge Diagnosis: Right vertebral artery occlusion with resultant. 2. Right cerebellar stroke Condition on Discharge: Fair Health Concerns: Secondary stroke prevention including aspirin and Plavix Goals: Restorative care and preventative care Activity: Resume your previous activity Activity Comment: Slowly resume your usual activity Lifting: None Bathing: No limitations Weightbearing: Full weightbearing Non-emergency contact: Primary Care Provider and Neurologist Call non-emergency contact if: you have any medication questions and your symptoms worsen Follow-up/Referrals: Ted Pinzon DO [Primary Care Provider] - Diet: Regular Addtl Attending Provider Instructions: Be ready to sit or hold onto something if dizziness recurs Pending Studies at Discharge: No Stand-Alone Forms: [employer], Smoking Cessation Medications and DC Order Prescriptions: New atorvastatin 40 mg Tablet 40 mg PO HS Qty: 30 0RF clopidogrel 75 mg Tablet 75 mg PO QAM Qty: 30 3RF aspirin [Aspirin Childrens] 81 mg tablet,chewable 81 mg PO BID 30 Days Qty: 60 0RF Continued losartan 100 mg tablet 100 mg PO QAM Qty: 90 3RF atorvastatin 20 mg tablet 20 mg PO HS Qty: 90 3RF metoprolol succinate 100 mg tablet extended release 24 hr 150 mg PO QAM Qty: 135 1RF nitroglycerin 0.4 mg tablet, sublingual 0.4 mg SL Q5M PRN (Reason: chest pain) Qty: 25 0RF alprazolam [Xanax] 0.5 mg tablet See Rx Instructions PO TID PRN (Reason: anxiety) Qty: 90 0RF Rx Instructions: 1/2-1 tab tid orally three times a day PRN; meclizine 25 mg tablet 25 mg PO TID PRN (Reason: severe vertigo) Qty: 30 1RF cyanocobalamin (vitamin B-12) 1,000 mcg tablet 1,000 mcg PO QAM magnesium oxide 400 mg magnesium capsule 400 mg PO DAILY potassium chloride 20 mEq tablet extended release 20 meq PO DAILY amlodipine [Norvasc] 5 mg tablet 5 mg PO DAILY acetaminophen [Tylenol Arthritis Pain] 650 mg Tablet Extended Release 650 mg PO Q12H PRN (Reason: Pain) Calcium 600 + D(3) 600 mg-5 mcg (200 unit) capsule 1 cap PO DAILY vitamin E acetate 134 mg (200 unit) Capsule 134 mg PO DAILY Held omeprazole 20 mg capsule,delayed release(DR/EC) 20 mg PO QAM PRN (Reason: stomach upset) Qty: 90 3RF Hold Instructions: Resume on 03/01/23. Hold your stomach medicines for the time between now and about March 01 Discharge Orders: Discharge Order (Routine); Ordered 02/12/23 Ordered By: Sukhjinder Honeycutt/Other Patient Handouts: A1C Admission Data Admit Date/Time: 02/11/23 23:58 Attending Provider: Sukhjinder Valadez Admit Provider: Nick Johnson Primary Care Provider: Ted Pinzon Other Providers: Nick Johnson Other Interventions: Discharge Summary Assessment (RN) Last Done: 02/12/23 16:24 Coding Level of Care Code 36387 INP/OBS DISCH >30 MIN Diagnoses Occlusion and stenosis of right vertebral artery I65.01 Hypertension I10 BPPV (benign paroxysmal positional vertigo) H81.10 GERD (gastroesophageal reflux disease) K21.9 CAD (coronary artery disease) I25.10 Time Spent (min) 45
--- NOTE | 2023-02-15 10:29 | Pharmacy Report ---
Pharmacist Stroke Counseling - Date of Service February 15, 2023 - Scope: Pharmacy has been consulted to provide medication discharge counseling for this patient admitted with ischemic stroke as per the Pharmacist Discharge Counseling for Stroke Patients Protocol. - Medications on Discharge: Home Medications Medication Instructions Recorded Confirmed cyanocobalamin (vitamin B-12) 1,000 mcg PO QAM 03/05/19 02/14/23 1,000 mcg tablet acetaminophen 650 mg 650 mg PO Q12H PRN Pain 06/23/19 02/14/23 tablet,extended release (Tylenol Arthritis Pain) amlodipine 5 mg tablet (Norvasc) 5 mg PO DAILY 12/28/22 02/14/23 calcium carbonate 600 mg-vitamin 1 cap PO DAILY 12/28/22 02/14/23 D3 5 mcg (200 unit) capsule (Calcium 600 + D(3)) magnesium oxide 400 mg PO DAILY 12/28/22 02/14/23 potassium chloride 20 mEq 20 meq PO DAILY 12/28/22 02/14/23 tablet,extended release vitamin E acetate 134 mg (200 134 mg PO DAILY 02/11/23 02/14/23 unit) capsule New Rx's Medication Instructions Recorded omeprazole 20 mg capsule,delayed 20 mg PO QAM PRN stomach upset #90 06/22/21 release caps meclizine 25 mg tablet 25 mg PO TID PRN severe vertigo 01/21/22 #30 tabs losartan 100 mg tablet 100 mg PO QAM #90 tabs 06/07/22 metoprolol succinate 100 mg 150 mg PO QAM #135 tabs 01/20/23 tablet,extended release 24 hr alprazolam 0.5 mg tablet (Xanax) See Rx Instructions PO TID PRN 01/31/23 anxiety #90 tabs nitroglycerin 0.4 mg sublingual 0.4 mg sublingual Q5M PRN chest 01/31/23 tablet pain #25 tabs Aspirin Childrens 81 mg chewable 81 mg PO BID 30 days #60 tabs 02/12/23 tablet (aspirin) atorvastatin 40 mg tablet 40 mg PO HS #30 tabs 02/12/23 clopidogrel 75 mg tablet 75 mg PO QAM #30 tabs 02/12/23 - Action: The above medications, specifically ones for stroke treatment/prophylaxis, have been reviewed in detail with the patient over the phone post discharge. This includes indication, common adverse reactions, drug interactions, and medication administration. Medication counseling has been employed using the teach-back method to ensure understanding. - Outcome: The patient demonstrated understanding of the medications. Additional comments: Spoke over the phone with patient today- she was very pleasant and receptive to counseling. Reviewed new medications to prevent stroke including Aspirin, Plavix, increased dose of Atorvastatin and Prilosec which is currently on hold. Patient said she is going to be seeing her family doctor this afternoon. She is currently ordered dual anti-platelet therapy ongoing. I asked her to discuss this with the family doctor since this may not need to be ongoing. Also asked her to discuss Atorvastatin dose increase with the doctor since she is above 75 years old and she may be okay to continue on her previous Atorvastatin 20 mg (moderate intensity dose). Discussed interaction between prilosec and Clopidogrel. She mentioned that she has indigestion and she was asked to hold the Prilosec. I asked her to talk to the family doctor about switching to Pantoprazole since this would not interact with the Clopidogrel. Discussed common side effects of the new meds in great detail. Reviewed how to use the medications, what to do if doses are missed, common drug interactions, common side effects, what to watch out for while using the medications. Pt verbalized understanding and restated the marshall points of each medication. Thank you for allowing pharmacy to be involved in the care of this patient. Please call [phone] with any additional questions
== END 2023-02-12 18:01 | disposition home or self-care (01) | DRG 66 ==
LOC: ED 14:48 → SUATTDRO 23:58 → INTOOBSV 23:58 → 4W 23:58

== ENCOUNTER 2025-05-15 11:06 | Observation (INO) ==
--- NOTE | 2025-04-26 09:13 | PAT Medication Instructions ---
Medication Instructions Date of Service April 26, 2025 Home Medications Medication Instructions Recorded losartan 100 mg tablet 100 mg PO QAM #90 tabs 10/14/24 metoprolol succinate 100 mg 150 mg (1.5 x 100 mg) PO QAM #135 12/11/24 tablet,extended release 24 hr tabs atorvastatin 40 mg tablet 40 mg PO HS #90 tabs 03/11/25 nitroglycerin 0.4 mg sublingual 0.4 mg sublingual Q5M PRN chest 04/04/25 tablet pain #25 tabs acetaminophen 650 mg tablet,extended release (Tylenol Arthritis Pain) 1,300 mg PO Q12H PRN Pain calcium 600 mg (as carbonate)-vitamin D3 5 mcg (200 unit) capsule (Calcium 600 + D(3)) 1 cap PO Q2D magnesium oxide 400 mg PO BID losartan 100 mg tablet 100 mg PO QAM ascorbic acid (vitamin C) 1,000 mg capsule 1 g PO Q2D metoprolol succinate 100 mg tablet,extended release 24 hr 150 mg (1.5 x 100 mg) PO QAM aspirin 81 mg tablet 81 mg PO HS atorvastatin 40 mg tablet 40 mg PO HS nitroglycerin 0.4 mg sublingual tablet 0.4 mg sublingual Q5M PRN chest pain alprazolam 0.5 mg tablet (Xanax) 0.25 - 0.5 mg PO TID PRN anxiety amlodipine 5 mg tablet (Norvasc) 5 mg PO QAM fexofenadine 180 mg tablet (May Allergy) 180 mg PO QAM lactobacillus combination no.4 3 billion cell capsule (Probiotic) 3,000 mmu cells PO Q2D Centrum Women 1 tab PO Q2D omega-3 fatty acids 1 cap PO Q2D pantoprazole 40 mg tablet,delayed release (Protonix) 40 mg PO QAM potassium chloride 20 mEq tablet,extended release 10 meq PO QPM vitamin B complex 1 tab PO Q2D Continue as directed nitroglycerin 0.4 mg sublingual tablet 0.4 mg sublingual Q5M PRN chest pain (if needed) ASK your prescriber and surgeon aspirin 81 mg tablet 81 mg PO HS STOP taking 2 weeks before surgery (or as soon as possible if surgery is within 2 weeks) omega-3 fatty acids 1 cap PO Q2D DO NOT take the morning of surgery calcium 600 mg (as carbonate)-vitamin D3 5 mcg (200 unit) capsule (Calcium 600 + D(3)) 1 cap PO Q2D magnesium oxide 400 mg PO BID losartan 100 mg tablet 100 mg PO QAM ascorbic acid (vitamin C) 1,000 mg capsule 1 g PO Q2D fexofenadine 180 mg tablet (May Allergy) 180 mg PO QAM lactobacillus combination no.4 3 billion cell capsule (Probiotic) 3,000 mmu cells PO Q2D Centrum Women 1 tab PO Q2D vitamin B complex 1 tab PO Q2D Take morning of surgery With a small sip of water, OTHERWISE NOTHING TO EAT OR DRINK AFTER MIDNIGHT: acetaminophen 650 mg tablet,extended release (Tylenol Arthritis Pain) 1,300 mg PO Q12H PRN Pain (if needed) metoprolol succinate 100 mg tablet,extended release 24 hr 150 mg (1.5 x 100 mg) PO QAM alprazolam 0.5 mg tablet (Xanax) 0.25 - 0.5 mg PO TID PRN anxiety (if needed) amlodipine 5 mg tablet (Norvasc) 5 mg PO QAM pantoprazole 40 mg tablet,delayed release (Protonix) 40 mg PO QAM Take evening before surgery acetaminophen 650 mg tablet,extended release (Tylenol Arthritis Pain) 1,300 mg PO Q12H PRN Pain (if needed) magnesium oxide 400 mg PO BID atorvastatin 40 mg tablet 40 mg PO HS alprazolam 0.5 mg tablet (Xanax) 0.25 - 0.5 mg PO TID PRN anxiety (if needed) potassium chloride 20 mEq tablet,extended release 10 meq PO QPM Other Notes If you have any questions please call us at [phone] or [phone] or [phone] or [phone]
--- NOTE | 2025-05-01 13:48 | Anesthesiology Consultation ---
Date of Service May 01, 2025 Assessment & Plan (1) Pre-op evaluation: Plan - check BSG am DOS. - awaiting [facility] cardiology ordered 05/13 dobutamine stress test and echocardiogram. - PCP pre-operative evaluation 04/19/25 [place]: "...Preoperative evaluation- Chest x- ray results satisfactory, EKG unchanged- Scheduled for dobutamine stress test and echocardiogram- Blood pressure: 128/60, blood glucose levels well-managed- Discussed potential for postoperative swelling and importance of monitoring for blood clots- CBC, renal panel, A1c, urine test, PT, and PTT to be ordered today- Fasting labs, including lipids, to be ordered postoperatively- Advised to continue aspirin regimen- Home nursing care with physical therapy and occupational therapy arranged for initial 2 weeks post-surgery- Cleared for surgery pending stress test results..." - cardiology pre-operative evaluation 04/15/25 [place]: "...CAD: Described as mild nonobstructive CAD on multiple cardiac catheterizations, > 15 years ago. No chest pain/angina. Chronic and stable dyspnea with exertion. Continue antiplatelet therapy. Was on Plavix following stroke in 2022, however, she self- discontinued the medication due to nosebleeds...tolerating low dose aspirin daily. Continue statin therapy and beta-marguerite...Blood pressure acceptable, especially given occasional orthostatic symptoms. No med changes made today. Edema has not changed with change in amlodipine dose...Dyspnea with exertion: Chronic and stable over several years...does not appear hypervolemic. Preop: Given limited functional status, recommend noninvasive ischemic evaluation prior to elective surgery. Will arrange a dobutamine stress echo. Pending results of DSE, she is at an acceptable risk for surgery..." - Outpatient joint assessment: Patient is currently scheduled for inpatient pathway. If re-evaluated and patient/surgeon requests outpatient pathway, patient is not a candidate for outpatient joint program. Chart Review Chart Review: Patient seen in Pre Admission Testing Teaching & Discussion Pre-Anesthesia Teaching/Discussion Notes: Instructed NPO after midnight before surgery, except medications with 15 cc of water. Medication instructions provided according to the PAT guidelines. History Surgery Operation Date: 05/15/25 13:55 Proposed Procedures p Right Total Knee Arthroplasty - Hilario Morales MD Height/Weight Height: 4 ft 11 in Weight: 67.1 kg Allergies Allergy/AdvReac Type Severity Reaction Status Date / Time benazepril Allergy Unknown per cardio Verified 04/25/25 14:52 note codeine Allergy Unknown ABDOMINAL Verified 04/16/25 11:18 PAIN gluten Allergy Unknown NO GLUTEN, Verified 04/16/25 11:18 PT HAS CELIAC DISEASE morphine AdvReac Unknown SEVERE Verified 04/16/25 11:18 HALLUCINATION Medications Home Medications Medication Instructions Recorded Confirmed Last Taken acetaminophen 650 mg 1,300 mg PO Q12H PRN Pain 06/23/19 04/25/25 06/23/19 06:00 tablet,extended release (Tylenol 2 tablets Arthritis Pain) calcium 600 mg (as 1 cap PO Q2D 12/28/22 04/25/25 Unknown carbonate)-vitamin D3 5 mcg (200 unit) capsule (Calcium 600 + D(3)) magnesium oxide 400 mg PO BID 12/28/22 04/25/25 Unknown losartan 100 mg tablet 100 mg PO QAM #90 tabs 10/14/24 04/25/25 Unknown ascorbic acid (vitamin C) 1,000 mg 1 g PO Q2D 10/19/24 04/25/25 Unknown capsule metoprolol succinate 100 mg 150 mg (1.5 x 100 mg) PO QAM #135 12/11/24 04/25/25 Unknown tablet,extended release 24 hr tabs aspirin 81 mg tablet 81 mg PO HS 01/01/25 04/25/25 Unknown atorvastatin 40 mg tablet 40 mg PO HS #90 tabs 03/11/25 04/25/25 Unknown nitroglycerin 0.4 mg sublingual 0.4 mg sublingual Q5M PRN chest 04/04/25 04/25/25 Unknown tablet pain #25 tabs amlodipine 5 mg tablet (Norvasc) 5 mg PO QAM 04/25/25 04/25/25 Unknown fexofenadine 180 mg tablet 180 mg PO QAM 04/25/25 04/25/25 Unknown (May Allergy) lactobacillus combination no.4 3 3,000 mmu cells PO Q2D 04/25/25 04/25/25 Unknown billion cell capsule (Probiotic) multivitamin-ferrous 1 tab PO Q2D 04/25/25 04/25/25 Unknown fumarate-folic acid 18 mg-400 mcg tablet (Centrum Women) omega-3 fatty acids 1 cap PO Q2D 04/25/25 04/25/25 Unknown pantoprazole 40 mg tablet,delayed 40 mg PO QAM 04/25/25 04/25/25 Unknown release (Protonix) potassium chloride 20 mEq 10 meq PO QPM 04/25/25 04/25/25 Unknown tablet,extended release vitamin B complex 1 tab PO Q2D 04/25/25 04/25/25 Unknown alprazolam 0.5 mg tablet (Xanax) 0.25 - 0.5 mg (0.5 - 1 x 0.5 mg) 04/29/25 Unknown PO TID PRN anxiety #90 tabs Past Medical History Medical History (Updated 05/01/25 @ 14:07 by Paula Feng PA-C) Adult celiac disease Anxiety BPPV (benign paroxysmal positional vertigo) Chronic lumbar pain Diabetes mellitus type II, controlled diet controlled Edema of left foot "has had since 2010 after back surgery" GERD (gastroesophageal reflux disease) controlled, stable per pt History of ataxia cane and walker prn History of blood transfusion during delivery History of skin cancer side of nose HLD (hyperlipidemia) HTN (hypertension) controlled, stable per pt; notes needing to do slow positional changes as will otherwise have lightheadedness Hx of coronary artery disease Hx of epistaxis 2022, 08/19 to being on Plavix Hx of migraines none for years Hx-TIA (transient ischemic attack) 08/2022, "walking sideways," put on Plavix "which she took herself off of due to nosebleeds, PCP aware," no residual symptoms Occlusion and stenosis of right vertebral artery Pulmonary hypertension moderate, 55 mmHg per 2022 echo Shortness of breath on exertion Sigmoid diverticulitis hx-several years ago Patient denies h/o seizures, heart attack, heart failure, or blood clots/DVTs. Exercise / Class Metabolic Activity III < 4 Walking/Shop/Light housework (ambulates with rolling walker, denies chest discomfort or shortness of breath with usual activities) Past Family History Family History Mother Myocardial infarction Father Myocardial infarction Denies family history of Ovarian cancer Prostate cancer Breast cancer Colorectal cancer Past Surgical History Surgical History (Updated 05/01/25 @ 13:42 by Paula Feng PA-C) History of back surgery 2010, lower back, hardware intact History of bunionectomy of both great toes History of carpal tunnel repair rt/lt History of cataract surgery rt/lt History of dilatation and curettage History of esophagogastroduodenoscopy (EGD) History of surgical removal of lesion skin cancer from nose History of tonsillectomy and adenoidectomy Hx laparoscopic cholecystectomy Hx of cardiac cath "many years ago," CP, [facility], no stents, found 20% blockage; f/u ann grajeda cardio Hx of colonoscopy Past Anesthesia History No Hx of Anesthesia Complications and No Family Hx of Anesthesia Complications History of PONV No Hx of PONV and No Hx of Motion Sickness Social History Smoking Status: Never smoker Do You Dip or Chew Tobacco: No Hx Alcohol Use: Yes (none for years) Alcohol type: wine alcohol intake frequency: holidays/special occasions only Hx Substance Use: No substance use type: does not use Review of Systems Patient denies chest pain, snoring, witnessed apneas, fever, chills, cough, wheezing, or palpitations. Physical Exam Vital Signs Vitals BP 145/85 P 78 TEMP 97.8 SP02 94% on RA RESP 17 Physical Patient resting comfortably in chair in no acute distress, alert and oriented, responding appropriately throughout visit Full cervical extension range of motion without pain TMD 3.5 finger breadths Mallampati Score 2 Dentition: edentulous, full upper and lower dentures Lungs: normal respiratory effort. Good air movement, clear throughout to auscultation, no adventitious breath sounds Cardiac: regular rate and rhythm, no murmurs noted Carotid arteries: negative bruit bilat Lab Results Anesthesia Preop Results Results Anesthesia Widget: WBC 6.18 K/ul (4.8-10.8) 04/19/25 Hgb 12.9 g/dl (12.0-16.0) 04/19/25 Hct 38.8 % (37.0-47.0) 04/19/25 Plt 281 K/uL (130-400) 04/19/25 Na 138 mmol/L (136-145) 04/19/25 K 4.3 mmol/L (3.5-5.1) 04/19/25 Cl 99 mmol/L (98-107) 04/19/25 CO2 32 mmol/L (21-32) 04/19/25 BUN 17 mg/dl (6-23) 04/19/25 Creat 0.87 mg/dl (0.6-1.2) 04/19/25 Glucose Level 132 mg/dl (70-99(Fasting)) H 04/19/25 PT 10.8 Seconds (9.0-12.0) 04/19/25 PTT 25 Seconds (21-31) 04/19/25 INR 1.0 (0.9-1.1) 04/19/25 HA1c 6.7 % (4.5-5.6) H 04/19/25 Urine Color Yellow 05/01/25 Urine Appearance Clear (Clear) 05/01/25 Urine pH 8.0 (4.5-7.5) H 05/01/25 Urine Specific Lovell 1.008 (1.000-1.030) 05/01/25 Urine Protein Negative (Negative) 05/01/25 Urine Glucose (UA) Negative (Negative) 05/01/25 Urine Ketones Negative (Negative) 05/01/25 Urine Blood Negative (Negative) 05/01/25 Urine Nitrite Negative (Negative) 05/01/25 Urine Bilirubin Negative (Negative) 05/01/25 Urine Urobilinogen Negative (Negative) 05/01/25 Urine Leukocyte Esterase 3+ (Negative) H 05/01/25 Urine WBC (Auto) 11-20 /hpf (0-5) H 05/01/25 Urine RBC (Auto) 0-2 /hpf (0-2) 05/01/25 Urine Hyaline Casts (Auto) 0-2 /lpf (0-2) 05/01/25 Urine Epithelial Cells (Auto) 0-2 /hpf (0-2) 05/01/25 Urine Bacteria (Auto) None Seen (None Seen) 05/01/25 Blood Type A Positive 05/01/25 Antibody Screen NEGATIVE 05/01/25 Testing Electrocardiogram Date: 03/07/25 Sinus rhythm, rate 75 bpm Nonspecific T wave abnormality Chest X-Ray Date: 04/17/25 No evidence of acute cardiopulmonary disease. 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 The patient has a left dominant vertebral basilar system and this supplies the posterior circulation which does not demonstrate any significant stenosis, dissection, aneurysm, or occlusion. The remainder of the intracranial circulation is unremarkable.
--- NOTE | 2025-05-13 15:43 | History & Physical Report ---
Date of Service May 13, 2025 Assessment & Plan (1) Osteoarthritis of right knee: Plan: End-stage right knee osteoarthritis with failed conservative management. Patient did well with knee replacement on her left knee in the past but she was younger. She has been cleared medically and patient desires to proceed with a right total knee arthroplasty. Osteoarthritis type: primary Qualified Code(s): M17.11 - Unilateral primary osteoarthritis, right knee History of Present Illness Chief Complaint: Chronic progressive right knee pain and associated disability. Primary Care Provider: Ted Pinzon DO 89-year-old female with right knee pain which she can no longer tolerate. History of left knee replacement in the past with good outcome. Patient denies headaches, sweats, fevers, chills, double vision, blurred vision, cough, sore throat, dysphagia, chest pain, sob, wheezing, n/v/d/c, numbness, tingling, fatigue, urinary symptoms. ROS positive for chronic anxiety, TIA 2022, some shortness of breath walking up stairs or hill or running. Arthritis of the spine. Acid reflux. Allergies Allergy/AdvReac Type Severity Reaction Status Date / Time benazepril Allergy Unknown per cardio Verified 04/25/25 14:52 note codeine Allergy Unknown ABDOMINAL Verified 04/16/25 11:18 PAIN gluten Allergy Unknown NO GLUTEN, Verified 04/16/25 11:18 PT HAS CELIAC DISEASE morphine AdvReac Unknown SEVERE Verified 04/16/25 11:18 HALLUCINATION Home Medications Medication Instructions Recorded Confirmed Type acetaminophen 650 mg 1,300 mg PO Q12H PRN Pain 06/23/19 04/25/25 History tablet,extended release (Tylenol Arthritis Pain) calcium 600 mg (as 1 cap PO Q2D 12/28/22 04/25/25 History carbonate)-vitamin D3 5 mcg (200 unit) capsule (Calcium 600 + D(3)) magnesium oxide 400 mg PO BID 12/28/22 04/25/25 History losartan 100 mg tablet 100 mg PO QAM #90 tabs 10/14/24 04/25/25 Rx ascorbic acid (vitamin C) 1,000 mg 1 g PO Q2D 10/19/24 04/25/25 History capsule metoprolol succinate 100 mg 150 mg (1.5 x 100 mg) PO QAM #135 12/11/24 04/25/25 Rx tablet,extended release 24 hr tabs aspirin 81 mg tablet 81 mg PO HS 01/01/25 04/25/25 History atorvastatin 40 mg tablet 40 mg PO HS #90 tabs 03/11/25 04/25/25 Rx nitroglycerin 0.4 mg sublingual 0.4 mg sublingual Q5M PRN chest 04/04/25 04/25/25 Rx tablet pain #25 tabs amlodipine 5 mg tablet (Norvasc) 5 mg PO QAM 04/25/25 04/25/25 History fexofenadine 180 mg tablet 180 mg PO QAM 04/25/25 04/25/25 History (May Allergy) lactobacillus combination no.4 3 3,000 mmu cells PO Q2D 04/25/25 04/25/25 History billion cell capsule (Probiotic) multivitamin-ferrous 1 tab PO Q2D 04/25/25 04/25/25 History fumarate-folic acid 18 mg-400 mcg tablet (Centrum Women) omega-3 fatty acids 1 cap PO Q2D 04/25/25 04/25/25 History pantoprazole 40 mg tablet,delayed 40 mg PO QAM 04/25/25 04/25/25 History release (Protonix) potassium chloride 20 mEq 10 meq PO QPM 04/25/25 04/25/25 History tablet,extended release vitamin B complex 1 tab PO Q2D 04/25/25 04/25/25 History alprazolam 0.5 mg tablet (Xanax) 0.25 - 0.5 mg (0.5 - 1 x 0.5 mg) 04/29/25 Rx PO TID PRN anxiety #90 tabs Past Med/Surg History Problem List (Updated 05/13/25 @ 15:42 by Hilario Morales MD) Osteoarthritis of right knee Right knee DJD Diabetes mellitus type II, controlled Recurrent falls Ataxia (Acute) BPPV (benign paroxysmal positional vertigo) Myalgia Sigmoid diverticulitis Edema Hyperpigmented skin lesion Adult celiac disease (Chronic) Anxiety (Chronic) Chronic lumbar pain (Chronic) Elevated liver enzymes (Chronic) Gastritis (Chronic) Left knee pain (Chronic) Positional lightheadedness (Chronic) Shortness of breath on exertion (Chronic) Arthritis of left knee (Chronic) Osteoarthritis (Chronic) "L knee" GERD (gastroesophageal reflux disease) (Chronic) Hyperlipidemia (Chronic) HTN (hypertension) (Chronic) CAD (coronary artery disease) (Chronic) Medical History (Updated 05/13/25 @ 15:42 by Hilario Morales MD) History of blood transfusion during delivery Pulmonary hypertension moderate, 55 mmHg per 2022 echo Occlusion and stenosis of right vertebral artery History of skin cancer side of nose Hx of migraines none for years Sigmoid diverticulitis hx-several years ago Shortness of breath on exertion HLD (hyperlipidemia) HTN (hypertension) controlled, stable per pt; notes needing to do slow positional changes as will otherwise have lightheadedness GERD (gastroesophageal reflux disease) controlled, stable per pt Hx-TIA (transient ischemic attack) 08/2022, "walking sideways," put on Plavix "which she took herself off of due to nosebleeds, PCP aware," no residual symptoms Hx of epistaxis 2022, 08/19 to being on Plavix Edema of left foot "has had since 2010 after back surgery" Diabetes mellitus type II, controlled diet controlled Chronic lumbar pain Hx of coronary artery disease BPPV (benign paroxysmal positional vertigo) History of ataxia cane and walker prn Anxiety Adult celiac disease Surgical History (Updated 05/01/25 @ 13:42 by Paula Feng PA-C) Hx of cardiac cath "many years ago," CP, C, no stents, found 20% blockage; f/u ann grajeda cardio History of dilatation and curettage Hx laparoscopic cholecystectomy History of surgical removal of lesion skin cancer from nose History of bunionectomy of both great toes Hx of colonoscopy History of tonsillectomy and adenoidectomy History of back surgery 2010, lower back, hardware intact History of esophagogastroduodenoscopy (EGD) History of cataract surgery rt/lt History of carpal tunnel repair rt/lt Family History Mother Myocardial infarction Father Myocardial infarction Denies family history of Ovarian cancer Prostate cancer Breast cancer Colorectal cancer Social History Smoking Status: Never smoker Second Hand Exposure: Yes (hx, smoked); Do You Dip or Chew Tobacco: No; Tobacco Cessation Education Requested by Patient: No Hx Alcohol Use: Yes (none for years) Alcohol type: wine Hx Substance Use: No Preferred Language: Serbian Communication Ability: Effective Field Pipe Lines Supervisor Required: No Beliefs That Will Affect Care: None marital status: / Current Living Situation: Alone Other Information That Helps Us Care for You: No Feels Safe at Home: Yes Safety Concerns: Feels Safe At This Time Assistive Devices: Cane, Denture - Upper, Denture - Lower, Glasses, Walker and Wheelchair Review of Systems All systems reviewed & are unremarkable except as noted in HPI & below Physical Exam Constitutional: WD/WN, vitals as above Respiratory: normal respiratory effort; no respiratory distress Cardiovascular: Rate/Rhythm: regular rate and regular rhythm Musculoskeletal: Right knee with a varus alignment and a mild effusion medial joint line and medial patella tenderness mild swelling no instability 0 to 120 degrees range of motion normal strength and neurovascular exam. Opposite knee 0 to 125 degrees range of motion with healed surgical scar consistent with knee replacement. Skin: no rashes, warm and dry Neurologic: normal touch/pain/proprioception Psychiatric: A+Ox3, euthymic affect Results & Data Diagnostic Findings Right knee x-ray demonstrates medial compartment and patellofemoral osteoarthritis grade 4 with subchondral sclerosis cystic changes osteophytes. Varus knee alignment and medial patellofemoral grade 4 disease.
[~2025-05-15 11:06] MED LIST changes: -ALPR-411 PO; -ASPEC81 PO; -ATOR-24 PO; +BUPIVACAINE 0.5 % 5 MG/1 ML PF 10ML VIAL ONE; -CALC600T9 PO; -CLB200 PO; -DOCU-94 PO; -HYDR-5688 PO; -LISI-461 PO; -MAGN400T5 PO; -METO100T44 PO; -NRV5 PO; -POTA-327 PO; -PRLSR20 PO; +ROPIVACAINE 0.5% 5 MG/ML 30 ML VIAL ONE
[2025-05-15] MEDS ORDERED: PROPOFOL IV EMULSION 10 MG/ML 20 ML VIAL IV ONE (11:23)
--- NOTE | 2025-05-15 11:34 | History & Physical Bridge Note ---
Date of Service May 15, 2025 History & Physical Bridge Note I have examined the patient, reviewed the History & Physical and in the interval since the performance of the History & Physical I have noted the following changes of clinical significance: no changes noted
[2025-05-15] MEDS: LR 500ML BOLUS, THEN 15ML/HR IV SCH (11:58)
[2025-05-15] MEDS: LR 60ML/HR IV SCH (11:59)
[2025-05-15] MEDS: GABAPENTIN 300 MG CAP PO SCH (12:03)
[2025-05-15] MEDS: CeleBREX 200 MG CAP PO SCH (12:03)
[2025-05-15] MEDS: METOCLOPRAMIDE HCL 10 MG TABLET PO SCH (12:03)
[2025-05-15] MEDS: FAMOTIDINE 20 MG TAB PO SCH (12:03)
[2025-05-15] MEDS: ACETAMINOPHEN 500 MG TAB PO SCH ×2 (12:03→18:09)
[2025-05-15] MEDS: dexAMETHasone**PF** 10 MG/ML VIAL IV SCH (12:04)
[2025-05-15] MEDS ORDERED: ATROPINE SULFATE 0.1 MG/ML 10ML SYR IV PRN (12:17)
[2025-05-15] MEDS ORDERED: ONDANSETRON INJ 2 MG/ML 2 ML VIAL IV PRN ×2 (12:17→16:43)
[2025-05-15] MEDS ORDERED: PROMETHAZINE HCL 6.25 MG in SODIUM CHLORIDE 0.9% 50 ML IV PRN (12:17)
[2025-05-15] MEDS ORDERED: MIDAZOLAM HCL 1 MG/ML 2ML VIAL ONE (12:45)
[2025-05-15] MEDS: TRANEXAMIC ACID 1,000 MG **IV Pre-op IV SCH (13:03)
[2025-05-15] MEDS: ROPIVACAINE 0.5% HCL/PF 246 MG, Ketorolac (*for OR use only*) 30 MG in SODIUM CHLORIDE ... INFIL SCH (13:57)
[2025-05-15] MEDS: ORTHO JOINT ANESTHETIC ONE (13:58)
[2025-05-15] MEDS ORDERED: ONDANSETRON INJ 2 MG/ML 2 ML VIAL ONE (15:09)
--- NOTE | 2025-05-15 15:38 | Operative Report ---
Post Operative Report Pre & Post Diagnosis Operation Date: 05/15/25 13:00 Pre-Op Diagnosis: Degenerative Joint Disease Knee Right Post-Op Diagnosis: Degenerative Joint Disease Knee Right I identified the patient and participated in the time-out.: Yes Procedure Operation Date: 05/15/25 13:00 Actual Procedures p Right Total Knee Arthroplasty(Right) - Hilario Morales MD Surgeon Hilario Morales MD Low Heel Builder Darshan CABRERA Estimated Blood Loss 5 Findings Consistent with Post-Op Diagnosis Specimens Bone cuts Drains 2 Hemovac Anesthesia Type MAC Spinal Regional Complications none Disposition Disposition: Recovery Room Indications 89-year-old active female with severe end-stage compartment osteoarthritis of the right knee possible old stress fracture medial tibia which has healed and somewhat fragmented. Patient has a varus knee [id number] medial compartment and patellofemoral joint. Patient has successful left knee replacement in the past wants proceed with right knee replacement at this time. Description of Procedure Patient taken to the operating room the size under spinal MAC regional block anesthesia. Patient was placed supine on the operating table. A pneumatic tourniquet was placed about the right upper thigh. The right lower extremity was prepped and draped in sterile fashion. Knee exam demonstrated 10 through 120 degrees range of motion and no pseudolaxity and moderate effusion and swelling. The leg was elevated exsanguinated with an Esmarch bandage and pneumatic tourniquet was raised to 300 millimeters of mercury. Skin incised sharply in longitudinal fashion. Subcutaneous flaps elevated. Incision was made through the medial retinaculum extending up in the mid third of the quadriceps tendon and down to the medial tibial tubercle. Intra-articular findings demonstrated severe medial compartment and patellofemoral osteoarthritis with grade 4 medial patellofemoral osteoarthritis and grade 4 medial compartment osteoarthritis with bone loss and ridging medially. The medial tibial plateau had some depression and sclerotic bone and a broken osteophyte consistent with possible previous insufficiency fracture with collapse that went on to heal.. The DosYogures triMr. Youthlon total knee arthroplasty system was used. To expose the knee the infrapatellar fat pad was resected. The meniscal remnants and cruciate ligaments were resected. The anterior fat pad over the femur in the area of the location of the anterior flange of the femoral component was resected. The lateral synovial bands were released. The femur was exposed. Custom CT scan formulated guide was placed onto the femur and the pins were placed. Alignment was satisfactory and no adjustments required. We took an additional +2 off the femur due to the flexion contracture and the distal femoral cut was made with the oscillating saw.The knee was extended and a subperiosteal peel lateral release was performed around the pat vidhi. Patella width was measured and width was reproduced using a freehand cut technique and a 29 mm asymmetric patella component. The 3 drill holes were made. Attention was taken back to the femur which was exposed with retractors and the pins were placed back into their holes and the CT formulated 4-in-1 cutting block was placed over the guidepins and the alignment was appropriate. The anteroposterior and chamfer cuts were made. The femur sized for a 2 PS right Ellie triathlon component. The CT tibial cutting guide was not fitting perfectly so I went ahead and used the external tibial cutting guide. The external tibial cutting guide was adjusted to make a perpendicular cut to the long axis of the tibia below the most deficient bone loss side. Cut was adjusted for slope. A lamina pot operator was used and the flexion extension gaps were balanced. No releases were required. All posterior osteophytes removed. All meniscal remnants were resected. The tibia exposed and the tibial guide was pinned in position and an excellent rotated position and then the drill and punch was used for the stem. The notch cutting device was centered appropriately and the femoral notch cut was made. The femoral trial was inserted. Trial tibial inserts were placed and size 12 PS gave balanced ligaments through flexion and extension. Patella tracking was assessed. The patella tracked centrally. The trial components were then removed and the orthomix anesthetic cocktail was injected per protocol. The knee was then copiously irrigated with pulsatile lavage saline solution. Final components were then cemented with Refobacin cement. Final components were Ellie triathlon size 2 right posterior stabilized femur with a 2 universal tibial baseplate with a 12 mm X.3 polyethylene posterior stabilized tibial bearing insert and a X.3 polyethylene 29 x 9 mm asymmetrical patella. Fixation pegs were placed on femoral component.. After the cement cured further pulsatile lavage irrigation was then performed with Irrisept and also pulsatile saline solution. 2 Hemovac drains were brought out laterally. The quadriceps tendon and medial retinaculum were closed with #2 FiberWire [id number]-qtala sutures along the medial retinaculum medial side of the patella and distal quadriceps tendon and an additional [id number] suture at the apex of the quadriceps tendon split proximally and an additional jkcykl-ol-osokc suture at the level of the tibial polyethylene in the patella tendon. a 0 running locking STRATAFIX suture was placed starting at the proximal split in the quadriceps tendon extending down to the inferior pole the patella and then below that level [id number] #1 Vicryl sutures were utilized to repair the medial retinaculum to the patella tendon. The knee was taken through full range of motion and the repair was secure. Knee range of motion was 0 through 130 degrees. The subcutaneous tissues were closed with 2-0 Vicryl sutures. Skin was closed with surgical vandana. Silverlon dressing was applied. The patient tolerated the procedure well. Darshan CABRERA was my physician clinical project assistant who participated as first breaker feeder and was involved in all aspects of the procedure including patient positioning prepping and draping,leg positioning ,soft tissue retraction and instrument management and participated in the closing and will participate in postoperative care of the patient. The patient tolerated the procedure well. Im ordering collagen sheets as a primary dressing and bordered super absorbent for secondary dressings for the wound resulting from this surgery. Collagen is being utilized to encourage the growth of blood vessels and granulation tissue. The collagen will also speed up the wound healing process, increase skin tensile strength at the surgery site and lessen the chance of a wound dehiscence, help prevent infection, and reduce the appearance of scarring. The silicone secondary dressings will protect the wound and help keep it clean and minimize that chances for infection. I believe that this treatment protocol is medically necessary to help facilitate the best outcome possible for my patient. I attest to the content of the Intraoperative Record and any orders documented therein. Any exceptions are noted below.
--- NOTE | 2025-05-15 15:55 | XRay Report ---
XR knee RT 1 or 2V routine CLINICAL HISTORY: Surgical Post Op COMPARISON: 06/12/2022 FINDINGS: Right knee prosthesis shows no hardware complication. There is expected soft tissue gas. S kin vandana are present. Postoperative drain is present. IMPRESSION: Unremarkable postoperative exam. ACT 112: Negative or not required by law. Electronically signed by: Gabriel Chung M.D. 05/15/2025 3:54 PM
--- NOTE | 2025-05-15 16:18 | Anesthesiology Progress Note ---
Date of Service May 15, 2025 Anesthesia Post Procedure Vital Signs Vital Signs: Temp Pulse Pulse Resp BP Pulse Ox O2 Del Method 05/15/25 16:15 73 17 147/83 H 93 Room Air 05/15/25 16:05 36.7 C 75 17 159/83 H 93 Room Air 05/15/25 15:55 70 15 153/85 H 94 Room Air 05/15/25 15:45 68 16 152/80 H 100 Oxymask 05/15/25 15:39 36.7 C 69 12 121/70 95 Oxymask 05/15/25 11:38 36.7 C 84 20 160/82 H 97 Room Air O2 Flow Rate 05/15/25 16:15 05/15/25 16:05 05/15/25 15:55 05/15/25 15:45 7 05/15/25 15:39 7 05/15/25 11:38 Transfer of Care Handoff Completed per policy Notes Mental Status: alert / awake / arousable and participated in evaluation Nausea / Vomiting: adequately controlled Pain: adequately controlled Airway Patency, RR, SpO2: stable & adequate BP & HR: stable & adequate Hydration State: stable & adequate Neuraxial Anesthesia: was administered and sensory block is resolving Anesthetic Complications: no major complications apparent and Pt Satisfied with anesthetic care
[2025-05-15] MEDS ORDERED: NITROGLYCERIN SL 0.4 MG/TAB TAB SL PRN (16:43)
[2025-05-15] MEDS ORDERED: KETOROLAC TROMETHAMINE 15 MG/ML VIAL IV PRN (16:43)
[2025-05-15] MEDS ORDERED: MAGNESIUM HYDROXIDE SUSP 30 ML UDC PO PRN (16:43)
[2025-05-15] MEDS ORDERED: METOCLOPRAMIDE HCL INJ 5 MG/ML 2 ML VIAL IV PRN (16:43)
[2025-05-15] MEDS ORDERED: HYDROmorphone INJ 0.5 MG/0.5 ML SYR IV PRN (16:43)
[2025-05-15] MEDS ORDERED: NALOXONE HCL 0.4 MG/1 ML VIAL/CARP IV PRN (16:43)
[2025-05-15] MEDS ORDERED: diphenhydrAMINE Capsule 25 MG CAP PO PRN (16:43)
[2025-05-15] MEDS ORDERED: ALUMINUM/MAGNESIUM SUSP 30 ML UDC PO PRN (16:43)
[2025-05-15] MEDS: SODIUM CHLORIDE 0.9% 1,000 ML IV SCH (17:59)
[2025-05-15] MEDS: ATORVASTATIN 40 MG TAB PO SCH (20:19)
[2025-05-15] MEDS: ASPIRIN 81 MG ECTAB PO SCH (20:19)
[2025-05-15] MEDS: TRANEXAMIC ACID / 0.7% NACL 1,000 MG/100 ML BAG IV SCH (20:20)
[2025-05-15] MEDS: DOCUSATE SODIUM 100 MG CAP PO SCH (20:21)
[2025-05-15] MEDS: SENNA 8.6 MG TAB PO SCH (22:58)
[2025-05-15] MEDS: MAGNESIUM OXIDE 400 MG TAB PO SCH (22:58)
[2025-05-15] MEDS: POTASSIUM CHLORIDE 10 MEQ TABCR PO SCH (23:05)
[2025-05-16] MEDS ORDERED: Nursing to Pharmacy Communication SCH (05:00)
[2025-05-16 06:33] LABS: Hematocrit (blood only) 35.7 % (37.0-47.0); Hemoglobin 12.4 g/dl (12.0-16.0); Mean Corpuscular Hemoglobin 31.5 pg (25.0-34.0); Mean Corpuscular Volume 90.6 fL (80.0-100.0); Platelet Count 272 K/uL (130-400); RDW Standard Deviation 42.1 fL (36.4-46.3); Red Blood Count 3.94 M/uL (4.20-5.40); White Blood Count 16.71 K/ul (4.8-10.8)
[2025-05-16 06:56] LABS: Anion Gap 10.0 (3-11); Blood Urea Nitrogen 17.0 mg/dl (6-23); Calcium 9.0 mg/dl (8.6-10.3); Carbon Dioxide 28.0 mmol/L (21-32); Chloride 100.0 mmol/L (98-107); Creatinine Clr Calc Pharmacy 30.7 ml/min; Glucose 156.0 mg/dl (70-99(Fasting)); Potassium 3.9 mmol/L (3.5-5.1); Sodium 138.0 mmol/L (136-145)
--- NOTE | 2025-05-16 07:46 | Orthopedic Progress Note ---
Date of Service May 16, 2025 Assessment & Plan (1) Osteoarthritis of right knee: Plan: Postop day 1 total knee replacement. Patient doing well and okay for discharge. Patient scheduled for home PT for few weeks. She can follow-up in the office in 2 weeks for staple removal. Silverlon dressing instructions. Drain can be discontinued prior to discharge today. End-stage right knee osteoarthritis with failed conservative management. Patient did well with knee replacement on her left knee in the past but she was younger. She has been cleared medically and patient desires to proceed with a right total knee arthroplasty. Admission and Anticipated Discharge Date Admission Date: May 15, 2025 Subjective No pain doing well Review of Systems Review of Systems: Feels well no chest pain shortness of breath Physical Exam Musculoskeletal: Independent straight leg raise dressing dry and intact distal circulation sensorimotor exam intact. Results & Data Vital Signs (Past 12 Hours) Vital Signs Temp Pulse Pulse Resp BP Pulse Ox O2 Del Method 05/16/25 04:09 36.4 C L 77 17 139/78 94 Room Air 05/16/25 03:00 36.5 C 77 16 145/84 H 94 Room Air 05/15/25 23:07 36.4 C L 77 20 160/81 H 96 Room Air Diagnostic Findings Well aligned total knee replacement right knee (1) Osteoarthritis of right knee Osteoarthritis type: primary Qualified Code(s): M17.11 - Unilateral primary osteoarthritis, right knee
[2025-05-16 07:52] VITALS: BP 162/77; PULSE 81; RESP 18; TEMP 97.7; O2SAT 95
[2025-05-16] MEDS: CALCIUM 600MG + VIT D 400 IU TAB PO SCH (08:18)
[2025-05-16] MEDS: METOPROLOL SUCC 50MG EXT REL TAB PO SCH (08:18)
[2025-05-16] MEDS: FEXOFENADINE HCL 180 MG TAB PO SCH (08:21)
[2025-05-16] MEDS: LOSARTAN POTASSIUM 50 MG TAB PO SCH (08:21)
[2025-05-16] MEDS: dexAMETHasone 10 MG in SYRINGE 0 ML IV SCH (08:22)
[2025-05-16] MEDS ORDERED: CEROVITE ADV FORMULA TAB PO SCH (09:00)
[2025-05-16] MEDS ORDERED: OMEGA-3 (PURIFIED FISH OIL) 1 GM CAP PO SCH (09:00)
[2025-05-16] MEDS ORDERED: POTASSIUM CHLORIDE 10 MEQ TABCR PO SCH (09:00)
[2025-05-16] MEDS ORDERED: ASCORBIC ACID 500 MG TAB PO SCH (09:00)
[2025-05-16] MEDS ORDERED: VITAMIN B COMPLEX TAB PO SCH (09:00)
[2025-05-16] MEDS ORDERED: ADVANCED PROBIOTIC 625 MG CAPSULE PO SCH (09:00)
== END 2025-05-16 11:12 | disposition home health service (06) ==
LOC: 3E 11:06 → ASU 11:06